=== PATIENT | female | born 1995 | race Caucasian/White ===

== ENCOUNTER → 2020-08-11 | Outpatient (CLI) | payer MEDICAID ==
[~2020-08-11] VITALS: Ht 162.6 cm; Wt 136.8 kg
[~2020-08-11] MED LIST: ATIVAN 0.50.5 MG/TAB PO; EFFEXOR 3737.5 MG/TA PO; FLEXERIL 1010 MG/TAB PO; LIPITOR 10MG10 MG PO; LITHIUM 30300 MG/CAP PO; MAXALT10 MG PO; MINIPRESS2 MG PO; PROVENTIL0.09 MG/A1 IH; TOPAMAX50 MG PO; ZYPREXA 5MG5 MG PO
[2020-08-11 08:56] VITALS: BP 127/91; PULSE 88
[2020-08-11 09:45] VITALS: BP 137/81; PULSE 80
== END ==
LOC: COL.RAD 08:35
DX: M51.27 Other intervertebral disc displacement, lumbosacral region (principal)
CPT/HCPCS: J3301